=== PATIENT | male | born 1955 | race Hispanic/Latino ===

== ENCOUNTER 2017-08-15 12:16 | Emergency (ER) | payer BC ==
--- OUTSIDE RECORDS SUMMARY | 2017-08-15 12:17 | XMS REPORT ---
:1955 Author Organization e[employer]Works Care Team Providers Name Role Phone Sp Tyson Provider Role Unavailable Allergies No Known Allergies Problems Problem Type Condition Code Onset Dates Condition Status Assessment Multiple joint pain M25.50 Active Assessment Benign essential HTN I10 Active Assessment Gout, unspecified cause, unspecified M10.9 Active chronicity, unspecified site Problem Obesity (BMI 30-39.9) E66.9 Active Problem Multiple joint pain M25.50 Active Problem Benign essential HTN I10 Active Problem Nocturia R35.1 Active Assessment Asymptomatic hypertensive urgency I16.0 Active Problem Gout, unspecified cause, unspecified M10.9 Active chronicity, unspecified site Problem Asymptomatic hypertensive urgency I16.0 Active Medications Medication Code System Code Instructions Start End Date Status Dosage Date Lisinopril [facility] 56032223221 40 MG Orally Active 1 tablet Once a day Allopurinol [facility] 56736137101 300 MG Orally Active 1 tablet Once a day Norvasc [facility] 56950030557 10 MG Orally Active 1 tablet Once a day Vimovo [facility] 16862560762 500-20 MG Orally Active 1 tablet Twice a day before meals Carvedilol [facility] 49718120773 3.125 MG Orally Active 1 tablet BID Results No Known Results Summary Purpose eClinicalWorks Submission
--- NOTE | 2017-08-15 13:58 | RAD REPORT ---
EXAM DESCRIPTION: RAD - Knee Left 3 View - 08/15/2017 1:41 pm CLINICAL HISTORY: Left knee pain status post injury FINDINGS: No fracture or dislocation is seen. Marked osteoarthritis involves medial, lateral and patellofemoral compartments. If patient continues have symptoms to suggest an occult fracture then MRI would be recommended
--- NOTE | 2017-08-15 14:45 | ER ---
Nurse's Notes [facility] Name: Juan Styles Age: 62 yrs Sex: Male : 1955 Arrival Date: 08/15/2017 Time: 12:19 Bed 11 Private MD: Tyson Snowden Diagnosis: Internal derangement of knee Presentation: 08/15 12:31 Presenting complaint: Patient states: "I tripped and fell here at the hospital in the aa5 hallway". Fall was witnessed by hospital staff. Pt reports falling onto left knee. Transition of care: patient was not received from another setting of care. Onset of symptoms was August 15, 2017. Risk Assessment: Do you want to hurt yourself or someone else? Patient reports no desire to harm self or others. Initial Sepsis Screen: Does the patient meet any 2 criteria? No. Patient's initial sepsis screen is negative. Does the patient have a suspected source of infection? No. Patient's initial sepsis screen is negative. Care prior to arrival: None. 12:31 Method Of Arrival: Wheelchair aa5 12:31 Acuity: SHOSHANA 4 aa5 Historical: - Allergies: 12:32 No Known Allergies; aa5 - PMHx: 12:32 Hypertension; aa5 - PSHx: 12:32 left knee; aa5 - Immunization history:: Adult Immunizations unknown. - Social history:: Smoking status: Patient/guardian denies using tobacco. - Ebola Screening: : No symptoms or risks identified at this time. Screenin:30 Abuse screen: Denies threats or abuse. Nutritional screening: No deficits noted. aa5 Tuberculosis screening: No symptoms or risk factors identified. Fall Risk None identified. Assessment: 13:30 General: Appears comfortable, Behavior is calm, cooperative. Pain: Complains of pain in aa5 medial aspect of left knee Pain does not radiate. Pain currently is 5 out of 10 on a pain scale. Quality of pain is described as aching, Pain began post-fall Is continuous, Aggravated by increased activity. Neuro: Level of Consciousness is awake, alert, obeys commands, Oriented to person, place, time, situation. Cardiovascular: No deficits noted. Respiratory: Airway is patent Respiratory effort is even, unlabored, Respiratory pattern is regular, symmetrical. GI: No signs and/or symptoms were reported involving the gastrointestinal system. : No signs and/or symptoms were reported regarding the genitourinary system. EENT: No signs and/or symptoms were reported regarding the EENT system. Derm: Skin is pink, warm \\T\\ dry. Musculoskeletal: Range of motion: intact in all extremities, Swelling absent. 14:30 Reassessment: Patient and/or family updated on plan of care and expected duration. Pain aa5 level reassessed. Patient is alert, oriented x 3, equal unlabored respirations, skin warm/dry/pink. 14:56 Reassessment: pt did not want knee immobilizer placed at this time, but reports he will ss put it on at home as he drove himself and must drive back home. Vital Signs: 12:33 BP 161 / 78; Pulse 50; Resp 18 S; Temp 98.8(TE); Pulse Ox 99% on R/A; Weight 99.79 kg aa5 (R); Height 5 ft. 8 in. (172.72 cm) (R); Pain 6/10; 12:33 Body Mass Index 33.45 (99.79 kg, 172.72 cm) aa5 ED Course: 12:19 Patient arrived in ED. sb2 12:20 Tyson Snowden DO is Private Physician. sb2 12:32 Triage completed. aa5 12:32 Arm band placed on. aa5 13:30 Patient has correct armband on for positive identification. Call light in reach. aa5 13:40 X-ray completed. Portable x-ray completed in exam room. Patient tolerated procedure jb2 well. 13:41 Knee Left 3 View XRAY In Process Unspecified. EDMS 14:08 Micth Alaniz PA is PHCP. jm 14:08 Erich Hubbard MD is Attending Physician. jmm 14:10 Hillary Campbell, NICOLASA is Primary Nurse. aa5 14:44 Destin Fuentes MD is Referral Physician. [facility] 14:56 No provider procedures requiring assistance completed. Patient did not have IV access ss during this emergency room visit. Administered Medications: No medications were administered Outcome: 14:44 Discharge ordered by . [facility] 14:56 Discharged to home ambulatory. ss 14:56 Condition: good 14:56 Discharge instructions given to patient, Instructed on discharge instructions, follow up and referral plans. medication usage, Demonstrated understanding of instructions, follow-up care, medications, Prescriptions given X 1. 14:59 Patient left the ED. Signatures: Dispatcher [employer] EDMS Mitch Alaniz PA PA jmm Buechter, Jesse jb2 Hillary Campbell RN RN aa5 Aleta Denton RN RN ss Angelita Moe sb2 Corrections: (The following items were deleted from the chart) 12:34 12:33 Pulse 50bpm; Resp 18bpm; Spontaneous; Pulse Ox 99% RA; Temp 98.8F Temporal; 99.79 aa5 kg Reported; Height 5 ft. 8 in. Reported; BMI: 33.4; Pain 6/10; aa5 : 12:30 Abuse screen: Denies threats or abuse. aa5 [facility] 12:30 Nutritional screening: No deficits noted. aa5 [facility] 12:30 Tuberculosis screening: No symptoms or risk factors identified. aa5 [facility] 12:30 Fall Risk None identified. 5 [facility]
--- NOTE | 2017-08-15 14:45 | EDPHYS ---
Physician Documentation [facility] Name: Juan Styles Age: 62 yrs Sex: Male : 1955 Arrival Date: 08/15/2017 Time: 12:19 Bed 11 Private MD: Sp [facility] ED Physician Erich Hubbard HPI: 08/15 14:37 This 62 yrs old Male presents to ER via Wheelchair with complaints of FELL jmm INSIDE FACILITY. 14:37 The patient presents with an injury, pain, that is acute. The complaints affect the jmm medial aspect of left knee. Context: The problem was sustained parking lot. Onset: The symptoms/episode began/occurred acutely, just prior to arrival. Modifying factors: The symptoms are alleviated by remaining still, the symptoms are aggravated by movement. Associated signs and symptoms:. This is a 62 year old male with a hx of htn that presents to the ED with left knee pain which occurred after the patient tripped in the parking lot. Patient states he landed directly on the affected knee. Patient denies other injury. . Historical: - Allergies: 12:32 No Known Allergies; aa5 - PMHx: 12:32 Hypertension; aa5 - PSHx: 12:32 left knee; aa5 - Immunization history:: Adult Immunizations unknown. - Social history:: Smoking status: Patient/guardian denies using tobacco. - Ebola Screening: : No symptoms or risks identified at this time. ROS: 14:37 Constitutional: Negative for fever, chills, and weight loss, Cardiovascular: Negative jmm for chest pain, palpitations, and edema, Respiratory: Negative for shortness of breath, cough, wheezing, and pleuritic chest pain, Abdomen/GI: Negative for abdominal pain, nausea, vomiting, diarrhea, and constipation, Back: Negative for injury and pain, : Negative for injury, bleeding, discharge, and swelling. 14:37 Skin: Negative for injury, rash, and discoloration, Neuro: Negative for headache, weakness, numbness, tingling, and seizure. 14:37 MS/extremity: Positive for pain. 14:37 All other systems are negative. Exam: 14:37 Head/Face: atraumatic. jmm 14:37 Constitutional: The patient appears in no acute distress, alert, awake. 14:37 Cardiovascular: Rate: normal. 14:37 Respiratory: the patient does not display signs of respiratory distress. 14:37 Musculoskeletal/extremity: mild tenderness on palpation of the left anterior knee, pain on full extension, full dorsalis pedis pulse, NVI. 14:37 Skin: Appearance: Color: normal in color. 14:37 Neuro: Orientation: is normal, Mentation: is normal, Memory: is normal. 14:37 Psych: Behavior/mood is pleasant, cooperative. Vital Signs: 12:33 BP 161 / 78; Pulse 50; Resp 18 S; Temp 98.8(TE); Pulse Ox 99% on R/A; Weight 99.79 kg aa5 (R); Height 5 ft. 8 in. (172.72 cm) (R); Pain 6/10; 12:33 Body Mass Index 33.45 (99.79 kg, 172.72 cm) aa5 Procedures: 14:41 Splinting: Splint applied to left leg using knee immobilizer, applied by tech. Examined jmm by me, post splint application: neurovascular intact, 2+ distal pulses palpable, Patient tolerated well. MDM: 14:25 Patient medically screened. jmm 14:41 Data reviewed: vital signs, nurses notes, radiologic studies, plain films. Counseling: rylee I had a detailed discussion with the patient and/or guardian regarding: the historical points, exam findings, and any diagnostic results supporting the discharge/admit diagnosis, radiology results, the need for outpatient follow up, to return to the emergency department if symptoms worsen or persist or if there are any questions or concerns that arise at home. 08/15 12:33 Order name: Knee Left 3 View XRAY; Complete Time: 14:08 aa5 08/15 14:36 Order name: Knee Immobilizer; Complete Time: 14:39 [facility] Administered Medications: No medications were administered Disposition: 08/15/17 14:44 Discharged to Home. Impression: Internal derangement of knee. - Condition is Stable. - Discharge Instructions: Knee Immobilizer, Knee Pain. - Prescriptions for Ibuprofen 800 mg Oral Tablet - take 1 tablet by ORAL route every 8 hours As needed take with food; 30 tablet. - Medication Reconciliation Form, Thank You Letter, Antibiotic Education, Prescription Opioid Use form. - Follow up: Destin Fuentes MD; When: 1 - 2 days; Reason: Continuance of care. Addendum: 08/19/2017 07:02 Co-signature as Attending Physician, Erich Hubbard MD I agree with the assessment and k dr plan of care. Signatures: Dispatcher [employer] Erich Cleaning MD MD [facility] Mitch Alaniz PA PA jmm Calderon, Audri, RN RN aa5 Aleta Denton RN RN ss Corrections: (The following items were deleted from the chart) 08/15 14:39 14:36 Crutches ordered. [facility] 14:59 14:44 08/15/2017 14:44 Discharged to Home. Impression: Internal derangement of knee. ss Condition is Stable. Forms are Medication Reconciliation Form, Thank You Letter, Antibiotic Education, Prescription Opioid Use. Follow up: Dr. Destin Fuentes; When: 1 - 2 days; Reason: Continuance of care. rylee
== END 2017-08-15 14:59 | disposition home or self-care (01) ==
LOC: ER 12:16
DX: M23.92 Unspecified internal derangement of left knee (principal); I10 Essential (primary) hypertension
CPT/HCPCS: 99283